=== PATIENT | female | born 1965 | race Caucasian/White ===

== ENCOUNTER → 2018-07-14 | Day surgery (SDC) | payer BC ==
[2018-07-09 15:03] LABS: BASOPHILS # (AUTO) 0.1 (0.0-0.1); BASOPHILS % 0.8 % (0.0-1.0); EOSINOPHILS # (AUTO) 0.3 (0.0-0.4); EOSINOPHILS % 3.3 % (0.0-6.0); HEMATOCRIT 41.1 % (34.2-44.1); HEMOGLOBIN 13.4 g/dL (12.0-16.0); LYMPHOCYTES # (AUTO) 2.9 (1.0-3.2); LYMPHOCYTES % 31.9 % (18.0-39.1); MEAN CORPUSCULAR HEMOGLOBIN 28.8 pg (28-32); MEAN CORPUSCULAR HGB CONC 32.6 g/dL (31-35); MEAN CORPUSCULAR VOLUME 88.2 fL (81-99); MONOCYTES # (AUTO) 0.6 (0.2-0.8); MONOCYTES % 6.4 % (4.4-11.3); NEUTROPHILS # (AUTO) 5.3 (2.1-6.9); NEUTROPHILS % 57.4 % (38.7-80.0); PLATELET COUNT 238 x10e3/uL (140-360); RED BLOOD COUNT 4.66 x10e6/uL (3.6-5.1); RED CELL DISTRIBUTION WIDTH 14.2 % (11.7-14.4)
[~2018-07-14] MED LIST: ASPIRIN81 MG; BENICAR HCT 201 EACH; CELEBREX100 MG PO; CLARITIN-D 241 EACH PO; CLONAZEPAM0.5 MG PO; ESTRADIOL1 MG PO; FENTANYL CITRATE/PF 100MCG/2 ML INJ ONE; FIBER SELECT G1 EACH; HYZAAR 100-251 EACH; MAGNESIUM; MELATONIN3 M1; MIDAZOLAM HCL 2 MG/2 ML VIAL ONE; MULTIVITAMIN; OMEPRAZOLE40 MG PO; PROBIOTIC & AC1 EACH; SIMVASTATIN40 MG PO; STOOL SOFTENER50 MG; ZYRTEC
[2018-07-14 11:40] VITALS: BP 121/72
--- NOTE | 2018-07-14 12:32 | Operative Report ---
DATE OF PROCEDURE: July 14, 2018 REFERRING PHYSICIAN: Dr. Regulo Mora. PROCEDURES PERFORMED 1. Esophagogastroduodenoscopy with polypectomy, biopsies, and esophageal dilatation. 2. Colonoscopy with polypectomy and biopsies. INDICATIONS FOR EGD: Dysphagia, heartburn, indigestion, bloating. INDICATIONS FOR COLONOSCOPY: Left lower quadrant pain, personal history of colon polyps, colorectal cancer screening. MEDICATION: Patient was done under MAC, please see anesthesiologist's note. PROCEDURE: With the patient in left lateral decubitus position, the flexible fiberoptic Olympus gastroscope was introduced into the esophagus under direct visualization without any difficulty. There was some patchy erythema noted in distal esophagus. A mild stricture was noted at the GE junction, was dilated to size 52-Tajik Hu. The scope was then advanced with ease into the stomach and multiple hyperplastic-appearing polyps were noted in the body of the stomach, some were partially excised with the cold biopsy forceps. Some polyps were noted in the antrum and some were excised with snare electrocautery. Biopsies were obtained also from the antrum and sent to stain for H. pylori. Pylorus was intubated with ease and the scope was advanced all the way to the 2nd portion of the duodenum. The scope was then withdrawn slowly, mucosa overlying the proximal 2nd portion and the duodenal bulb appeared to be within normal limits. The scope was then withdrawn back into the stomach and retroflexed and mucosa overlying the fundus and the cardia appeared to be within normal limits. The scope was then straightened out. Stomach was decompressed. Scope was subsequently withdrawn. Patient tolerated the procedure well. IMPRESSION 1. Distal esophagitis. 2. Esophageal stricture, mild, gastroesophageal junction, dilated to size 52-Tajik Hu. 3. Gastritis, biopsied. Biopsies sent to stain for Helicobacter pylori. 4. Gastric polyps, antrum, snared x2. 5. Gastric polyps, hyperplastic-appearing, body, some partially excised with the cold biopsy forceps. PLAN: Follow up histology. Initiate Protonix 40 mg 1 p.o. q.a.m. a.c. Patient was then turned around. After adequate lubrication of the anal canal, a flexible fiberoptic Olympus colonoscope was inserted into the rectum with ease and advanced all the way to the cecum. Mucosa overlying the cecum, ascending colon, and transverse colon appeared to be within normal limits. There were some mild inflammatory changes noted in the distal descending and the sigmoid colon and random biopsies were obtained. One polyp was snared from the sigmoid colon and 7 polyps were hot biopsied. The scope was then retroflexed into the distal rectum and small internal hemorrhoids were noted, none of which was actively bleeding. The scope was then straightened out and was subsequently withdrawn. Patient tolerated the procedure well. IMPRESSION 1. Mild patchy left-sided colitis. 2. Sigmoid colon polyps, 1 snared and 7 hot biopsied. 3. Small internal hemorrhoids, none actively bleeding. PLAN: Follow up histology. Initiate VSL#3 one p.o. daily. Check TSH. Patient might benefit from a followup colonoscopy in 3 years. Job#: [id number] LORRI cc:DR. REGULO MORA
== END | disposition home or self-care (01) ==
LOC: OR 08:02
PROVIDERS: ATTEND Internal Medicine Gastroenterology
DX: K29.70 Gastritis, unspecified, without bleeding (principal); D12.5 Benign neoplasm of sigmoid colon; K31.7 Polyp of stomach and duodenum; K22.2 Esophageal obstruction; K51.50 Left sided colitis without complications; K20.9 Esophagitis, unspecified; K21.9 Gastro-esophageal reflux disease without esophagitis; K64.8 Other hemorrhoids; K59.00 Constipation, unspecified; M19.90 Unspecified osteoarthritis, unspecified site; I10 Essential (primary) hypertension; E78.5 Hyperlipidemia, unspecified; Z01.810 Encounter for preprocedural cardiovascular examination; Z01.812 Encounter for preprocedural laboratory examination; Z79.82 Long term (current) use of aspirin; Z79.4 Long term (current) use of insulin; Z68.38 Body mass index [BMI] 38.0-38.9, adult; Z87.01 Personal history of pneumonia (recurrent); Z80.0 Family history of malignant neoplasm of digestive organs
CPT/HCPCS: 36415 ×2; 43239; 43251; 43450; 45380; 45384; 45385; 84443 ×2; 85025; 93005; J2250; 45378